=== PATIENT | female | born 1965 | race Caucasian/White ===

== ENCOUNTER 2018-02-23 12:35 | Emergency (ER) | payer MEDICARE ==
[~2018-02-23] VITALS: Ht 165.1 cm; Wt 72.6 kg
[2018-02-23 13:38] LABS: BASOPHILS ABSOLUTE AUTO 0.06 K/mm3 (0.00-0.23); BASOPHILS PERCENT AUTO 1 % (0-2); EOSINOPHILS ABSOLUTE AUTO 0.06 K/mm3 (0.00-0.68); EOSINOPHILS PERCENT AUTO 1 % (0-6); Hematocrit 42.1 % (33.0-51.0); Hemoglobin 14.4 g/dL (11.5-16.0); IMMATURE GRAN ABSOLUTE AUTO 0.01 K/mm3 (0.00-0.10); IMMATURE GRAN PERCENT AUTO 0 % (0-1); LYMPHOCYTES ABSOLUTE AUTO 1.95 K/mm3 (0.84-5.20); LYMPHOCYTES PERCENT AUTO 28 % (21-46); MONOCYTES PERCENT AUTO 9 % (4-13); Mean Corpuscular HGB 31.3 pg (26.0-34.0); Mean Corpuscular HGB Conc 34.2 g/dL (31.5-36.5); Mean Corpuscular Volume 92 fL (80-100); Mean Platelet Volume 10.2 fL (9.1-12.4); NEUTROPHILS ABSOLUTE AUTO 4.25 K/mm3 (1.96-9.15); NEUTROPHILS PERCENT AUTO 61 % (41-73); Platelet Count 222 K/mm3 (150-400); RDW Coefficient Variation 12.2 % (11.7-14.2); RDW Standard Deviation 40.8 fL (35.1-46.3); White Blood Cell Count 6.93 K/mm3 (4.00-11.30)
[2018-02-23 13:40] LABS: Influenza A Negative (NEGATIVE); Influenza B Negative (NEGATIVE)
[2018-02-23 13:54] LABS: Alanine Aminotransfer (ALT/SGP 30 U/L (12-78); Albumin/Globulin Ratio 1.1 (0.8-1.8); Alk Phos 91 U/L (50-136); Anion Gap 7 mmol/L (6-16); Aspartate Aminotrans (AST/SGOT 16 U/L (12-37); Bilirubin, Total 0.4 mg/dL (0.1-1.0); Blood Urea Nitrogen 6 mg/dL (8-24); Bun/Creatinine Ratio 7.2 (12.0-20.0); CO2, Blood 26 mmol/L (21-32); Calcium, Blood 8.3 mg/dL (8.5-10.1); Chloride, Blood 107 mmol/L (98-108); Creatinine, Blood 0.83 mg/dL (0.40-1.00); Globulin, Blood 3.5 g/dL (2.2-4.0); Glomerular Filtration Rate >60 (60-); Glucose, Blood 91 mg/dL (70-99); Potassium, Blood 3.8 mmol/L (3.5-5.5); Sodium, Blood 140 mmol/L (136-145); Total Protein, Blood 7.5 g/dL (6.4-8.2)
[2018-02-23 13:57] LABS: Source, Urine Clean Catch
[2018-02-23 14:15] LABS: Appearance, Urine Clear (Clear); Bilirubin, Urine Neg (Neg); Blood, Urine 1+ (Neg); Color, Urine Yellow (P-Yellow); Glucose Qualitative, Urine Neg (Neg); Ketones, Urine Neg (Neg); Leukocyte Esterase, Urine Neg (Neg); Nitrite, Urine Neg (Neg); Protein, Urine Neg (Neg); Specific Gravity, Urine 1.015 (1.003-1.022); Urobilinogen, Urine NORM (Normal)
[2018-02-23 14:31] LABS: Bacteria Rare /hpf; Red Blood Cells, Urine Not Seen /hpf (0-2); Squamous Epithelial Cells Rare /hpf (Few); White Blood Cells, Urine 0-2 /hpf (0-5)
[2018-02-23] MEDS ORDERED: Protonix40 MG PO (19:09)
== END 2018-02-23 19:20 | disposition home or self-care (01) ==
LOC: ER 12:35
PROVIDERS: Physician Assistant
DX: R10.13 Epigastric pain (principal); Z88.2 Allergy status to sulfonamides; R11.2 Nausea with vomiting, unspecified
CPT/HCPCS: 36415; 80053; 81001; 81025; 83690; 85025; 87804; 96374; 99283-25; J2405

== ENCOUNTER 2020-04-07 05:41 | Inpatient (IN) | payer MEDICARE ==
[~2020-04-07] VITALS: Ht 170.2 cm; Wt 71.0 kg
[~2020-04-07 05:41] MED LIST: Protonix40 MG PO
[2020-04-07] MEDS ORDERED: TRAZ50 PO (06:27)
[2020-04-07] MEDS ORDERED: Inderal40 MG PO (06:27)
[2020-04-07] MEDS ORDERED: Cymbalta20 MG PO (06:27)
[2020-04-07] MEDS ORDERED: TOPI100 PO (06:27)
[2020-04-07 06:29] LABS: BASOPHILS ABSOLUTE AUTO 0.04 K/mm3 (0.00-0.23); BASOPHILS PERCENT AUTO 0 % (0-2); EOSINOPHILS ABSOLUTE AUTO 0.03 K/mm3 (0.00-0.68); EOSINOPHILS PERCENT AUTO 0 % (0-6); Hematocrit 40.7 % (33.0-51.0); Hemoglobin 14.5 g/dL (11.5-16.0); IMMATURE GRAN ABSOLUTE AUTO 0.08 K/mm3 (0.00-0.10); IMMATURE GRAN PERCENT AUTO 0 % (0-1); LYMPHOCYTES ABSOLUTE AUTO 1.37 K/mm3 (0.84-5.20); LYMPHOCYTES PERCENT AUTO 8 % (21-46); MONOCYTES ABSOLUTE AUTO 1.26 K/mm3 (0.16-1.47); MONOCYTES PERCENT AUTO 7 % (4-13); Mean Corpuscular HGB 31.9 pg (26.0-34.0); Mean Corpuscular HGB Conc 35.6 g/dL (31.5-36.5); Mean Corpuscular Volume 90 fL (80-100); Mean Platelet Volume 10.8 fL (9.1-12.4); NEUTROPHILS ABSOLUTE AUTO 15.42 K/mm3 (1.96-9.15); NEUTROPHILS PERCENT AUTO 85 % (41-73); Platelet Count 191 K/mm3 (150-400); RDW Coefficient Variation 12.7 % (11.7-14.2); RDW Standard Deviation 41.5 fL (35.1-46.3); Red Blood Cell Count 4.55 M/mm3 (3.80-5.20)
[2020-04-07 06:47] LABS: Alanine Aminotransfer (ALT/SGP 19 U/L (12-78); Albumin, Blood 3.4 g/dL (3.4-5.0); Albumin/Globulin Ratio 0.9 (0.8-1.8); Alk Phos 80 U/L (50-136); Anion Gap 9 mmol/L (6-16); Aspartate Aminotrans (AST/SGOT 15 U/L (12-37); Bilirubin, Total 0.3 mg/dL (0.1-1.0); Blood Urea Nitrogen 10 mg/dL (8-24); Bun/Creatinine Ratio 11.5 (12.0-20.0); CO2, Blood 21 mmol/L (21-32); Calcium, Blood 9.3 mg/dL (8.5-10.1); Chloride, Blood 111 mmol/L (98-108); Creatinine, Blood 0.87 mg/dL (0.40-1.00); Globulin, Blood 3.7 g/dL (2.2-4.0); Glomerular Filtration Rate >60 (60-); Glucose, Blood 118 mg/dL (70-99); Potassium, Blood 3.2 mmol/L (3.5-5.5); Sodium, Blood 141 mmol/L (136-145); Total Protein, Blood 7.1 g/dL (6.4-8.2)
[2020-04-07] MEDS ORDERED: TIZA4 PO (11:35)
[2020-04-07] MEDS ORDERED: ZEBUTAL 50-3251 EAC1 PO (11:35)
[2020-04-07] MEDS ORDERED: VITAMIN D5000 UNIT PO (11:36)
--- NOTE | 2020-04-07 18:34 | NUR ---
Review with patietof her symptoms she has been having more migaines and dificulty with vision. Struggling with pain. She states she is suppord to see a neurologist and a manager social. Sh has significan anexiety and pain. She does use edible marijuanna. She also takes many many supplements. We revied dosing of homepathics and vitamins. [place]. Will follow up for further symptom care. pt very fatigued and stressed that she is worsening.
--- NOTE | 2020-04-07 19:36 | NUR ---
SHIFT SUMMARY: ASSUMED CARE OF PATIENT UPON HER ARRIVAL FROM ED AT 1100. C/O ABDOMINAL PAIN, MEDICATED PER EMAR WITH SOME RELIEF. PLACED ON TELEMETRY, SINUS TACH IN LOW 100'S. HAVING LOOSE, WATERY STOOL; SPECIMEN SENT TO LAB, NO RESULTS YET. C/O NAUSEA, MEDICATED FOR NAUSEA X 1 WITH RELIEF. POTASSIUM REPLACED. TOLERATED PO INTAKE, CLEAR LIQUIDS. AMBULATING INDEPEDNETLY TO BR.
--- NOTE | 2020-04-08 04:51 | NUR ---
SHIFT SUMMARY- PT. A&OX4, PLEASANT, AND COOPERATIVE WITH CARE. C/O ABD PAIN DURING THE NIGHT AND NA 1X. MEDICATED PER EMAR WITH GOOD EFFECT. CONTINUES TO HAVE FREQUENT WATERY STOOLS T/O THE NIGHT. ADDITIONAL SPECIMEN SENT TO THE LAB FOR ORDERED TESTS. PT. AMBULATORY IN THE ROOM, TOLERATING WELL. IV FLUIDS INFUSING, VSS. CALL LIGHT WITHIN REACH AND SIDE RAILS UPX2. WILL CONT TO MONITOR.
[2020-04-08 05:03] LABS: BASOPHILS ABSOLUTE AUTO 0.03 K/mm3 (0.00-0.23); BASOPHILS PERCENT AUTO 0 % (0-2); EOSINOPHILS ABSOLUTE AUTO 0.05 K/mm3 (0.00-0.68); EOSINOPHILS PERCENT AUTO 1 % (0-6); Hematocrit 32.8 % (33.0-51.0); Hemoglobin 11.2 g/dL (11.5-16.0); IMMATURE GRAN ABSOLUTE AUTO 0.02 K/mm3 (0.00-0.10); IMMATURE GRAN PERCENT AUTO 0 % (0-1); LYMPHOCYTES ABSOLUTE AUTO 1.81 K/mm3 (0.84-5.20); LYMPHOCYTES PERCENT AUTO 24 % (21-46); MONOCYTES PERCENT AUTO 8 % (4-13); Mean Corpuscular HGB 31.5 pg (26.0-34.0); Mean Corpuscular HGB Conc 34.1 g/dL (31.5-36.5); Mean Corpuscular Volume 92 fL (80-100); Mean Platelet Volume 11.4 fL (9.1-12.4); NEUTROPHILS ABSOLUTE AUTO 5.04 K/mm3 (1.96-9.15); NEUTROPHILS PERCENT AUTO 67 % (41-73); Platelet Count 160 K/mm3 (150-400); RDW Coefficient Variation 13.1 % (11.7-14.2); RDW Standard Deviation 43.8 fL (35.1-46.3); Red Blood Cell Count 3.56 M/mm3 (3.80-5.20); White Blood Cell Count 7.55 K/mm3 (4.00-11.30)
[2020-04-08 05:23] LABS: Anion Gap 5 mmol/L (6-16); Blood Urea Nitrogen 4 mg/dL (8-24); Bun/Creatinine Ratio 4.9 (12.0-20.0); CO2, Blood 25 mmol/L (21-32); Calcium, Blood 8.6 mg/dL (8.5-10.1); Chloride, Blood 116 mmol/L (98-108); Creatinine, Blood 0.81 mg/dL (0.40-1.00); Glomerular Filtration Rate >60 (60-); Glucose, Blood 89 mg/dL (70-99); Potassium, Blood 3.1 mmol/L (3.5-5.5); Sodium, Blood 146 mmol/L (136-145)
[2020-04-08 11:53] LABS: Adenovirus F 40/41 Not Detected (NOT DETECT); Astrovirus Not Detected (NOT DETECT); Campylobacter Sp Detected (NOT DETECT); Cryptosporidium Not Detected (NOT DETECT); Cyclospora Cayetanensis Not Detected (NOT DETECT); E. Coli O157 Not Detected (NOT DETECT); Entamoeba Histolytica Not Detected (NOT DETECT); Enteroaggregative E. coli-EAEC Not Detected (NOT DETECT); Enteropathogenic E. coli-EPEC Not Detected (NOT DETECT); Enterotoxigenic E. coli-ETEC Not Detected (NOT DETECT); Giardia Lamblia Not Detected (NOT DETECT); Norovirus GI/GII Not Detected (NOT DETECT); Plesiomonas Shigelloides Not Detected (NOT DETECT); Rotavirus A Not Detected (NOT DETECT); Salmonella Sp Not Detected (NOT DETECT); Sapovirus Not Detected (NOT DETECT); Shiga Toxin-prod E. coli-STEC Not Detected (NOT DETECT); Shigella/Enteroin E. coli-EIEC Not Detected (NOT DETECT); Vibrio Cholerae Not Detected (NOT DETECT); Vibrio Sp Not Detected (NOT DETECT); Yersinia Enterocolitica Not Detected (NOT DETECT)
--- NOTE | 2020-04-08 16:09 | NUR ---
SHIFT SUMMARY PT AOX4. PT VERY PAINFUL TO ABD- MEDICATED THE PT TODAYX2. PT ALSO C/O OF MIGRAINE AND MUSCLE SPASM; CALLED THE DOCTOR; PT RECEIVED FIORECET AND TAZANIDINE- PT STATED FEELING MUCH BETTER. PT HAS A LOW BP THIS AFTERNOON OF 92/55; WILL RECHECK THE BP. PT HAD MULTIPLE DIARRHEA TODAY. ENCOURAGED THE PT TO DRINK MORE FLUIDS. PT IS ON LR @150/ML.BED IS IN THE LOWEST POSITION AND CALL LIGHT WITHIN REACH
--- NOTE | 2020-04-09 04:47 | NUR ---
SHIFT SUMMARY- PT. CONTINUED TO HAVE LOOSE STOOLS. REPORTS STOOL NOTED TO HAVE SOME LUMPY CONSISTENCY. C/O ABD PAIN 07/20, MEDICATED MULTIPLE TIMES DURING THE NIGHT WITH GOOD RELIEF. PT. ALSO C/O HEADACHE, NA, WELL MUSCLE ACHE. MEDICATED PER EMAR. PT. SLEPT ON/OFF THE REST OF THE NIGHT. NO APPARENT DISTRESS NOTED. VSS. CALL LIGHT WITHIN REACH AND SIDE RAILS UPX2. WILL CONT TO MONITOR.
[2020-04-09 04:48] LABS: BASOPHILS ABSOLUTE AUTO 0.04 K/mm3 (0.00-0.23); BASOPHILS PERCENT AUTO 1 % (0-2); EOSINOPHILS ABSOLUTE AUTO 0.12 K/mm3 (0.00-0.68); EOSINOPHILS PERCENT AUTO 2 % (0-6); Hematocrit 32.1 % (33.0-51.0); Hemoglobin 11.2 g/dL (11.5-16.0); IMMATURE GRAN ABSOLUTE AUTO 0.01 K/mm3 (0.00-0.10); IMMATURE GRAN PERCENT AUTO 0 % (0-1); LYMPHOCYTES PERCENT AUTO 39 % (21-46); MONOCYTES ABSOLUTE AUTO 0.57 K/mm3 (0.16-1.47); MONOCYTES PERCENT AUTO 10 % (4-13); Mean Corpuscular HGB 31.8 pg (26.0-34.0); Mean Corpuscular HGB Conc 34.9 g/dL (31.5-36.5); Mean Corpuscular Volume 91 fL (80-100); NEUTROPHILS ABSOLUTE AUTO 2.89 K/mm3 (1.96-9.15); NEUTROPHILS PERCENT AUTO 49 % (41-73); RDW Coefficient Variation 13.2 % (11.7-14.2); RDW Standard Deviation 43.9 fL (35.1-46.3); Red Blood Cell Count 3.52 M/mm3 (3.80-5.20); White Blood Cell Count 5.93 K/mm3 (4.00-11.30)
[2020-04-09 05:02] LABS: Magnesium, Blood 1.7 mg/dL (1.6-2.4)
[2020-04-09 05:03] LABS: Alanine Aminotransfer (ALT/SGP 17 U/L (12-78); Albumin, Blood 2.6 g/dL (3.4-5.0); Alk Phos 54 U/L (50-136); Anion Gap 7 mmol/L (6-16); Aspartate Aminotrans (AST/SGOT 14 U/L (12-37); Bilirubin, Total 0.3 mg/dL (0.1-1.0); Blood Urea Nitrogen 4 mg/dL (8-24); Bun/Creatinine Ratio 4.6 (12.0-20.0); CO2, Blood 21 mmol/L (21-32); Calcium, Blood 8.7 mg/dL (8.5-10.1); Chloride, Blood 117 mmol/L (98-108); Creatinine, Blood 0.86 mg/dL (0.40-1.00); Globulin, Blood 2.7 g/dL (2.2-4.0); Glomerular Filtration Rate >60 (60-); Glucose, Blood 100 mg/dL (70-99); Phosphorus, Blood 2.9 mg/dL (2.5-4.9); Potassium, Blood 3.3 mmol/L (3.5-5.5); Sodium, Blood 145 mmol/L (136-145); Total Protein, Blood 5.3 g/dL (6.4-8.2)
[2020-04-09 05:23] LABS: Mean Platelet Volume 11.7 fL (9.1-12.4); Platelet Count 113 K/mm3 (150-400)
[2020-04-09] MEDS ORDERED: Vitamin D2000 UNIT PO (11:31)
[2020-04-09] MEDS ORDERED: ACET325 PO (11:32)
[2020-04-09] MEDS ORDERED: METR500 PO (11:33)
[2020-04-09] MEDS ORDERED: CIPR500 PO (11:33)
[2020-04-09] MEDS ORDERED: POTCHL20ER PO (11:34)
[2020-04-09] MEDS ORDERED: ONDA4ODT MM (11:34)
[2020-04-09] MEDS ORDERED: VISBIOME PROBIOTIC PO (11:35)
--- NOTE | 2020-04-09 14:08 | NUR ---
PT DISCHARGE TO HOME VIA WC TO SON. ALANNAH DC'D; TOLERATED WELL/. PT MEDS FAXED TO [facility]. PT ALSO HAS A HARD SCRIPT FOR [facility]CO FOR PAIN. PT MEDICATED PRIOR DISCHARGE AND MEDICATED WITH ZOFRAN FOR NAUSEA. PT PROVIDED EDUCATION PACKETS AND EDUCATION ABOUT NEW ABX PO. PT VERBALIZED UNDERSTANDING. PT ALSO AWARE TO CALL PCP FOR FU APPOINTMENT WITHIN A WEEK.
== END 2020-04-09 14:06 | disposition home or self-care (01) | DRG 872 ==
LOC: ER 05:41 → MEDS 09:47
PROVIDERS: Emergency Medicine; Family Medicine; ADMIT Internal Medicine
DX: A41.9 Sepsis, unspecified organism (principal); K51.00 Ulcerative (chronic) pancolitis without complications; E87.6 Hypokalemia; G43.909 Migraine, unspecified, not intractable, without status migrainosus; E53.8 Deficiency of other specified B group vitamins; F32.9 Major depressive disorder, single episode, unspecified; I10 Essential (primary) hypertension; Z20.822 Contact with and (suspected) exposure to COVID-19; M79.7 Fibromyalgia; F17.210 Nicotine dependence, cigarettes, uncomplicated
CPT/HCPCS: 0097U; 36415; 74177; 80048; 80053; 83605; 83690; 83735; 84100; 84443; 85025; 87015; 87040; 87045; 87046; 87177; 87205; 87209; 87899; 96361; 96365-59; 96366; 96375; 99285-25; A9270; J0744; J1650; J2405; J3010; J3480; J7030; J7060; J7120; Q9967

== ENCOUNTER 2021-08-08 14:10 | Emergency (ER) | payer OTHER ==
[~2021-08-08] VITALS: Ht 162.6 cm; Wt 62.6 kg
[~2021-08-08 14:10] MED LIST changes: +ACET325 PO; +CIPR500 PO; +Cymbalta20 MG PO; +Inderal40 MG PO; +METR500 PO; +ONDA4ODT MM; +POTCHL20ER PO; +TIZA4 PO; +TOPI100 PO; +TRAZ50 PO; +VISBIOME PROBIOTIC PO; +VITAMIN D5000 UNIT PO; +Vitamin D2000 UNIT PO; +ZEBUTAL 50-3251 EAC1 PO
[2021-08-08 14:48] LABS: BASOPHILS ABSOLUTE AUTO 0.04 K/mm3 (0.00-0.23); BASOPHILS PERCENT AUTO 0 % (0-2); EOSINOPHILS ABSOLUTE AUTO 0.02 K/mm3 (0.00-0.68); EOSINOPHILS PERCENT AUTO 0 % (0-6); Hematocrit 43.5 % (33.0-51.0); Hemoglobin 15.9 g/dL (11.5-16.0); IMMATURE GRAN ABSOLUTE AUTO 0.02 K/mm3 (0.00-0.10); IMMATURE GRAN PERCENT AUTO 0 % (0-1); LYMPHOCYTES ABSOLUTE AUTO 2.64 K/mm3 (0.84-5.20); LYMPHOCYTES PERCENT AUTO 25 % (21-46); MONOCYTES PERCENT AUTO 5 % (4-13); Mean Corpuscular HGB 31.7 pg (26.0-34.0); Mean Corpuscular HGB Conc 36.6 g/dL (31.5-36.5); Mean Corpuscular Volume 87 fL (80-100); Mean Platelet Volume 10.6 fL (9.1-12.4); NEUTROPHILS PERCENT AUTO 70 % (41-73); Platelet Count 305 K/mm3 (150-400); RDW Coefficient Variation 12.1 % (11.7-14.2); RDW Standard Deviation 38.7 fL (35.1-46.3); Red Blood Cell Count 5.01 M/mm3 (3.80-5.20); White Blood Cell Count 10.62 K/mm3 (4.00-11.30)
[2021-08-08 15:21] LABS: Albumin, Blood 4.3 g/dL (3.4-5.0); Albumin/Globulin Ratio 1.2 (0.8-1.8); Bilirubin, Total 0.5 mg/dL (0.1-1.0); Bun/Creatinine Ratio 11.9 (12.0-20.0); Calcium, Blood 10.1 mg/dL (8.5-10.1); Creatinine, Blood 0.76 mg/dL (0.40-1.00); Globulin, Blood 3.7 g/dL (2.2-4.0); Magnesium, Blood 2.2 mg/dL (1.6-2.4); Potassium, Blood 3.2 mmol/L (3.5-5.5)
== END 2021-08-08 17:22 | disposition home or self-care (01) ==
LOC: ER 14:10
PROVIDERS: Physician Assistant
DX: E86.0 Dehydration (principal); U07.1 COVID-19; E87.6 Hypokalemia; I10 Essential (primary) hypertension; F17.210 Nicotine dependence, cigarettes, uncomplicated; Z79.899 Other long term (current) drug therapy; Z88.2 Allergy status to sulfonamides; Z91.018 Allergy to other foods
CPT/HCPCS: 36415; 71045; 80053; 83735; 85025; 96361; 96374; 99283-25; A9270; J2405; J7030